=== PATIENT | female | born 2000 | race Caucasian/White ===

== ENCOUNTER 2022-05-31 18:55 | Emergency (ER) | payer BC ==
[2022-05-31 19:56] LABS: ESTIMATED GFR 92 mL/min (>60)
[2022-05-31 20:16] LABS: CORONAVIRUS COVID-19 NAA NEGATIVE (NEGATIVE)
== END 2022-05-31 20:31 | disposition home or self-care (01) ==
LOC: JP.ED 18:55
DX: R10.12 Left upper quadrant pain (principal); F41.9 Anxiety disorder, unspecified; Z20.822 Contact with and (suspected) exposure to COVID-19
CPT/HCPCS: 0241U; 36415; 80053; 81001; 81025; 83690; 85025; 99284; 99283